=== PATIENT | male | born 1950 | race Caucasian/White ===

== ENCOUNTER 2019-09-18 10:32 | Emergency (ER) | payer BC, OTHER ==
[~2019-09-18] VITALS: Ht 180.3 cm; Wt 86.2 kg
[2019-09-18 10:36] VITALS: BP 118/83; Ht 180.3 cm; Wt 86.2 kg
== END 2019-09-18 11:51 | disposition home or self-care (01) ==
LOC: ED 10:32
DX: S93.401A Sprain of unspecified ligament of right ankle, initial encounter (principal); I10 Essential (primary) hypertension; X58.XXXA Exposure to other specified factors, initial encounter; Y93.89 Activity, other specified; Y92.89 Other specified places as the place of occurrence of the external cause; Y99.8 Other external cause status